=== PATIENT | female | born 1935 | race Hispanic/Latino ===

== ENCOUNTER 2017-03-08 11:34 | Day surgery (SDC) | payer MEDICARE, MEDICAID ==
[2017-03-08] MEDS ORDERED: Epoetin 40,000 UNITS/ML VIAL SC SCH (12:00)
[2017-03-08 13:41] VITALS: BP 200/80; TEMP 97.8
== END 2017-03-08 13:41 | disposition home or self-care (01) ==
LOC: ONC/OP 11:34
PROVIDERS: ATTEND Internal Medicine Hematology & Oncology
DX: I13.0 Hypertensive heart and chronic kidney disease with heart failure and stage 1 through stage 4 chronic kidney disease, or unspecified chronic kidney disease (principal); I50.23 Acute on chronic systolic (congestive) heart failure; N18.2 Chronic kidney disease, stage 2 (mild); D63.1 Anemia in chronic kidney disease; D50.9 Iron deficiency anemia, unspecified; E11.22 Type 2 diabetes mellitus with diabetic chronic kidney disease; I25.10 Atherosclerotic heart disease of native coronary artery without angina pectoris; E78.5 Hyperlipidemia, unspecified; Z79.82 Long term (current) use of aspirin; Z79.899 Other long term (current) drug therapy
CPT/HCPCS: 96372; J0885

== ENCOUNTER 2017-05-24 11:41 | Day surgery (SDC) | payer MEDICARE, MEDICAID ==
[2017-05-24] MEDS ORDERED: Epoetin 40,000 UNITS/ML VIAL SC SCH (12:00)
== END 2017-05-24 13:10 | disposition home or self-care (01) ==
LOC: ONC/OP 11:41
PROVIDERS: ATTEND Internal Medicine Hematology & Oncology
DX: I12.9 Hypertensive chronic kidney disease with stage 1 through stage 4 chronic kidney disease, or unspecified chronic kidney disease (principal); N18.2 Chronic kidney disease, stage 2 (mild); D63.1 Anemia in chronic kidney disease; E78.5 Hyperlipidemia, unspecified
CPT/HCPCS: 96372; J0885

== ENCOUNTER 2017-07-29 12:04 | Day surgery (SDC) | payer MEDICARE, MEDICAID ==
[2017-07-29] MEDS ORDERED: Epoetin 40,000 UNITS/ML VIAL ONE (12:13)
[2017-07-29 12:22] VITALS: BP 182/83; TEMP 98
== END 2017-07-29 12:27 | disposition home or self-care (01) ==
LOC: ONC/OP 12:04
PROVIDERS: ATTEND Internal Medicine Hematology & Oncology
DX: I13.0 Hypertensive heart and chronic kidney disease with heart failure and stage 1 through stage 4 chronic kidney disease, or unspecified chronic kidney disease (principal); E11.22 Type 2 diabetes mellitus with diabetic chronic kidney disease; N18.2 Chronic kidney disease, stage 2 (mild); I50.22 Chronic systolic (congestive) heart failure; D63.1 Anemia in chronic kidney disease; I48.0 Paroxysmal atrial fibrillation; I25.10 Atherosclerotic heart disease of native coronary artery without angina pectoris; E78.5 Hyperlipidemia, unspecified; Z95.0 Presence of cardiac pacemaker; Z98.890 Other specified postprocedural states
CPT/HCPCS: 96372; J0885

== ENCOUNTER 2017-09-06 11:34 | Day surgery (SDC) | payer MEDICARE, MEDICAID ==
[2017-09-06] MEDS ORDERED: Epoetin 40,000 UNITS/ML VIAL SC SCH (11:45)
[2017-09-06 11:48] VITALS: BP 160/85; TEMP 98.1
[2017-09-06] MEDS ORDERED: Prevnar 13-Val Conj/PF 0.5 ML SYRINGE IM ONE (14:00)
== END 2017-09-06 11:58 | disposition home or self-care (01) ==
LOC: ONC/OP 11:34
PROVIDERS: ATTEND Internal Medicine Hematology & Oncology
DX: N18.2 Chronic kidney disease, stage 2 (mild) (principal); D63.1 Anemia in chronic kidney disease; D50.9 Iron deficiency anemia, unspecified
CPT/HCPCS: 96372; J0885

== ENCOUNTER 2017-11-01 11:45 | Day surgery (SDC) | payer MEDICARE, MEDICAID ==
[2017-11-01] MEDS ORDERED: Epoetin 40,000 UNITS/ML VIAL ONE (11:53)
[2017-11-01] MEDS ORDERED: Epoetin 40,000 UNITS/ML VIAL SC SCH (12:00)
[2017-11-01 12:57] VITALS: BP 192/86; TEMP 98
== END 2017-11-01 12:57 | disposition home or self-care (01) ==
LOC: ONC/OP 11:45
PROVIDERS: ATTEND Internal Medicine Hematology & Oncology
DX: D50.9 Iron deficiency anemia, unspecified (principal); N18.2 Chronic kidney disease, stage 2 (mild); D63.1 Anemia in chronic kidney disease
CPT/HCPCS: 96372; J0885

== ENCOUNTER 2018-01-03 15:52 | Day surgery (SDC) | payer MEDICARE, MEDICAID ==
[2018-01-03 16:12] VITALS: BP 192/71; TEMP 98.1
[2018-01-03] MEDS ORDERED: Epoetin 40,000 UNITS/ML VIAL SC SCH (16:15)
== END 2018-01-03 16:13 | disposition home or self-care (01) ==
LOC: ONC/OP 15:52
PROVIDERS: ATTEND Internal Medicine Hematology & Oncology
DX: N18.2 Chronic kidney disease, stage 2 (mild) (principal); D63.1 Anemia in chronic kidney disease; Z79.01 Long term (current) use of anticoagulants; Z79.899 Other long term (current) drug therapy
CPT/HCPCS: 96372; J0885

== ENCOUNTER 2018-02-11 12:15 | Day surgery (SDC) | payer MEDICARE, MEDICAID ==
[2018-02-11] MEDS ORDERED: Epoetin 40,000 UNITS/ML VIAL ONE (12:29)
[2018-02-11] MEDS ORDERED: Epoetin 40,000 UNITS/ML VIAL SC SCH (12:45)
== END 2018-02-11 12:31 | disposition home or self-care (01) ==
LOC: ONC/OP 12:15
PROVIDERS: ATTEND Internal Medicine Hematology & Oncology
DX: N18.2 Chronic kidney disease, stage 2 (mild) (principal); D63.1 Anemia in chronic kidney disease; D50.9 Iron deficiency anemia, unspecified
CPT/HCPCS: 82728; 83540; 83550; 96372; J0885

== ENCOUNTER 2018-03-21 12:12 | Day surgery (SDC) | payer MEDICARE, MEDICAID ==
[2018-03-21] MEDS ORDERED: Epoetin 40,000 UNITS/ML VIAL ONE (12:13)
== END 2018-03-21 19:40 | disposition home or self-care (01) ==
LOC: ONC/OP 12:12
PROVIDERS: ATTEND Internal Medicine Hematology & Oncology
DX: N18.2 Chronic kidney disease, stage 2 (mild) (principal); D63.1 Anemia in chronic kidney disease; D50.9 Iron deficiency anemia, unspecified; Z79.01 Long term (current) use of anticoagulants; Z79.82 Long term (current) use of aspirin; Z79.899 Other long term (current) drug therapy
CPT/HCPCS: 96372; J0885

== ENCOUNTER 2018-05-23 11:59 | Day surgery (SDC) | payer MEDICARE, MEDICAID ==
[2018-05-23] MEDS ORDERED: Epoetin 40,000 UNITS/ML VIAL ONE (12:09)
[2018-05-23] MEDS ORDERED: Epoetin 40,000 UNITS/ML VIAL SC SCH (12:15)
[2018-05-23 12:22] VITALS: BP 172/73; TEMP 98.3
== END 2018-05-23 12:23 | disposition home or self-care (01) ==
LOC: ONC/OP 11:59
PROVIDERS: ATTEND Internal Medicine Hematology & Oncology
DX: N18.2 Chronic kidney disease, stage 2 (mild) (principal); D63.1 Anemia in chronic kidney disease; D50.9 Iron deficiency anemia, unspecified
CPT/HCPCS: 82728; 83540; 83550; 96372; J0885

== ENCOUNTER 2018-07-07 14:02 | Day surgery (SDC) | payer MEDICARE, MEDICAID ==
[2018-07-07] MEDS ORDERED: Epoetin 40,000 UNITS/ML VIAL ONE (14:05)
[2018-07-07] MEDS ORDERED: EPOETIN ALFA-EPBX (NON-ESRD) 40,000 UNIT/ML VIAL SC SCH (14:30)
[2018-07-07 14:48] VITALS: BP 176/74; TEMP 98
== END 2018-07-07 14:48 | disposition home or self-care (01) ==
LOC: ONC/OP 14:02
PROVIDERS: ATTEND Internal Medicine Hematology & Oncology
DX: N18.2 Chronic kidney disease, stage 2 (mild) (principal); D63.1 Anemia in chronic kidney disease; D50.9 Iron deficiency anemia, unspecified
CPT/HCPCS: 96372; J0885; Q5106

== ENCOUNTER 2018-08-29 12:02 | Day surgery (SDC) | payer MEDICARE, MEDICAID ==
[2018-08-29] MEDS ORDERED: EPOETIN ALFA-EPBX (NON-ESRD) 40,000 UNIT/ML VIAL SC SCH (12:15)
[2018-08-29 12:22] VITALS: BP 136/63; TEMP 97.7
[2018-08-29] MEDS ORDERED: EPOETIN ALFA-EPBX (ESRD) 40,000 UNIT/ML VIAL SC SCH (12:30)
== END 2018-08-29 12:30 | disposition home or self-care (01) ==
LOC: ONC/OP 12:02
PROVIDERS: ATTEND Internal Medicine Hematology & Oncology
DX: N18.2 Chronic kidney disease, stage 2 (mild) (principal); D63.1 Anemia in chronic kidney disease; D50.9 Iron deficiency anemia, unspecified
CPT/HCPCS: 96372; Q5106

== ENCOUNTER 2018-10-10 12:57 | Day surgery (SDC) | payer MEDICARE, MEDICAID ==
[2018-10-10 13:07] VITALS: BP 174/74; TEMP 97.6
[2018-10-10] MEDS ORDERED: EPOETIN ALFA-EPBX (ESRD) 40,000 UNIT/ML VIAL SC SCH (13:15)
[2018-10-10] MEDS ORDERED: Prevnar 13-Val Conj/PF 0.5 ML SYRINGE IM ONE (13:30)
== END 2018-10-10 15:36 | disposition home or self-care (01) ==
LOC: ONC/OP 12:57
PROVIDERS: ATTEND Internal Medicine Hematology & Oncology
DX: N18.2 Chronic kidney disease, stage 2 (mild) (principal); D63.1 Anemia in chronic kidney disease; D50.9 Iron deficiency anemia, unspecified
CPT/HCPCS: 96372; Q5105

== ENCOUNTER 2018-11-11 09:53 | Day surgery (SDC) | payer MEDICARE, MEDICAID ==
[2018-11-11] MEDS ORDERED: EPOETIN ALFA-EPBX (ESRD) 40,000 UNIT/ML VIAL ONE (09:56)
[2018-11-11 10:01] VITALS: BP 148/67; TEMP 97.6
== END 2018-11-11 12:37 | disposition home or self-care (01) ==
LOC: ONC/OP 09:53
PROVIDERS: ATTEND Internal Medicine Hematology & Oncology
DX: N18.2 Chronic kidney disease, stage 2 (mild) (principal); D63.1 Anemia in chronic kidney disease; D50.9 Iron deficiency anemia, unspecified
CPT/HCPCS: 96372; Q5105

== ENCOUNTER 2018-12-12 11:35 | Day surgery (SDC) | payer MEDICARE, MEDICAID ==
[2018-12-12] MEDS ORDERED: EPOETIN ALFA-EPBX (NON-ESRD) 40,000 UNIT/ML VIAL ONE (11:42)
[2018-12-12 11:59] VITALS: BP 143/65; TEMP 97.7
[2018-12-12] MEDS ORDERED: EPOETIN ALFA-EPBX (ESRD) 40,000 UNIT/ML VIAL SC SCH (12:00)
== END 2018-12-12 12:00 | disposition home or self-care (01) ==
LOC: ONC/OP 11:35
PROVIDERS: ATTEND Internal Medicine Hematology & Oncology
DX: N18.2 Chronic kidney disease, stage 2 (mild) (principal); D63.1 Anemia in chronic kidney disease; D50.9 Iron deficiency anemia, unspecified
CPT/HCPCS: 96372; Q5106

== ENCOUNTER 2019-01-23 11:37 | Day surgery (SDC) | payer MEDICARE, MEDICAID ==
[2019-01-23] MEDS ORDERED: EPOETIN ALFA-EPBX (ESRD) 40,000 UNIT/ML VIAL ONE (11:57)
[2019-01-23 12:12] VITALS: BP 149/67; TEMP 98
[2019-01-23] MEDS ORDERED: EPOETIN ALFA-EPBX (ESRD) 40,000 UNIT/ML VIAL SC SCH (12:15)
== END 2019-01-23 12:13 | disposition home or self-care (01) ==
LOC: ONC/OP 11:37
PROVIDERS: ATTEND Internal Medicine Hematology & Oncology
DX: N18.2 Chronic kidney disease, stage 2 (mild) (principal); D63.1 Anemia in chronic kidney disease; D50.9 Iron deficiency anemia, unspecified
CPT/HCPCS: 82728; 83540; 83550; 96372; Q5105

== ENCOUNTER 2019-02-27 11:33 | Day surgery (SDC) | payer MEDICARE, MEDICAID ==
[2019-02-27] MEDS ORDERED: EPOETIN ALFA-EPBX (ESRD) 40,000 UNIT/ML VIAL ONE (11:39)
[2019-02-27] MEDS ORDERED: EPOETIN ALFA-EPBX (ESRD) 40,000 UNIT/ML VIAL SC SCH (12:00)
[2019-02-27 13:05] VITALS: BP 154/67; TEMP 98.3
== END 2019-02-27 13:17 | disposition home or self-care (01) ==
LOC: ONC/OP 11:33
PROVIDERS: ATTEND Internal Medicine Hematology & Oncology
DX: N18.2 Chronic kidney disease, stage 2 (mild) (principal); D63.1 Anemia in chronic kidney disease; D50.9 Iron deficiency anemia, unspecified
CPT/HCPCS: 96372; Q5105

== ENCOUNTER 2019-04-13 12:07 | Day surgery (SDC) | payer MEDICARE, MEDICAID ==
[2019-04-13] MEDS ORDERED: EPOETIN ALFA-EPBX (ESRD) 40,000 UNIT/ML VIAL ONE (12:15)
[2019-04-13 12:27] VITALS: BP 165/71; TEMP 97.5
[2019-04-13] MEDS ORDERED: EPOETIN ALFA-EPBX (ESRD) 40,000 UNIT/ML VIAL SC SCH (12:30)
== END 2019-04-13 12:32 | disposition home or self-care (01) ==
LOC: ONC/OP 12:07
PROVIDERS: ATTEND Internal Medicine Hematology & Oncology
DX: N18.2 Chronic kidney disease, stage 2 (mild) (principal); D63.1 Anemia in chronic kidney disease; D50.9 Iron deficiency anemia, unspecified
CPT/HCPCS: 96372; Q5105

== ENCOUNTER → 2019-05-22 | Day surgery (SDC) | payer MEDICARE, MEDICAID ==
[~2019-05-22] MED LIST: EPOETIN ALFA-EPBX (ESRD) 40,000 UNIT/ML VIAL ONE
[2019-05-22 13:59] VITALS: BP 181/78
== END ==
LOC: ONC/OP 12:21
PROVIDERS: ATTEND Internal Medicine Hematology & Oncology
DX: N18.2 Chronic kidney disease, stage 2 (mild) (principal); D63.1 Anemia in chronic kidney disease; D50.9 Iron deficiency anemia, unspecified
CPT/HCPCS: 96372; Q5105

== ENCOUNTER 2019-06-19 11:44 | Day surgery (SDC) | payer MEDICARE, MEDICAID ==
[2019-06-19] MEDS ORDERED: EPOETIN ALFA-EPBX (ESRD) 40,000 UNIT/ML VIAL ONE (11:47)
[2019-06-19 11:57] VITALS: BP 196/75; TEMP 97.9
== END 2019-06-19 11:59 | disposition home or self-care (01) ==
LOC: ONC/OP 11:44
PROVIDERS: ATTEND Internal Medicine Hematology & Oncology
DX: N18.2 Chronic kidney disease, stage 2 (mild) (principal); D63.1 Anemia in chronic kidney disease; D50.9 Iron deficiency anemia, unspecified
CPT/HCPCS: 36415; 82728; 83540; 83550; 96372; Q5105

== ENCOUNTER 2019-07-31 11:31 | Day surgery (SDC) | payer MEDICARE, MEDICAID ==
[2019-07-31] MEDS ORDERED: EPOETIN ALFA-EPBX (ESRD) 40,000 UNIT/ML VIAL ONE (11:36)
[2019-07-31 11:56] VITALS: BP 173/72; TEMP 97.9
== END 2019-07-31 12:28 | disposition home or self-care (01) ==
LOC: ONC/OP 11:31
PROVIDERS: ATTEND Internal Medicine Hematology & Oncology
DX: N18.2 Chronic kidney disease, stage 2 (mild) (principal); D63.1 Anemia in chronic kidney disease; D50.9 Iron deficiency anemia, unspecified
CPT/HCPCS: 96372; Q5105

== ENCOUNTER 2019-08-28 11:23 | Day surgery (SDC) | payer MEDICARE, MEDICAID ==
[2019-08-28 11:32] VITALS: BP 177/74; TEMP 97.9
[2019-08-28] MEDS ORDERED: EPOETIN ALFA-EPBX (ESRD) 40,000 UNIT/ML VIAL ONE (11:35)
== END 2019-08-28 11:38 | disposition home or self-care (01) ==
LOC: ONC/OP 11:23
PROVIDERS: ATTEND Internal Medicine Hematology & Oncology
DX: N18.2 Chronic kidney disease, stage 2 (mild) (principal); D63.1 Anemia in chronic kidney disease; D50.9 Iron deficiency anemia, unspecified
CPT/HCPCS: 96372; Q5105

== ENCOUNTER 2019-10-02 11:34 | Day surgery (SDC) | payer MEDICARE, MEDICAID ==
[2019-10-02] MEDS ORDERED: EPOETIN ALFA-EPBX (ESRD) 40,000 UNIT/ML VIAL ONE (11:45)
[2019-10-02] MEDS ORDERED: EPOETIN ALFA-EPBX (ESRD) 40,000 UNIT/ML VIAL SC SCH (12:15)
== END 2019-10-02 11:57 | disposition home or self-care (01) ==
LOC: ONC/OP 11:34
PROVIDERS: ATTEND Internal Medicine Hematology & Oncology
DX: N18.2 Chronic kidney disease, stage 2 (mild) (principal); D63.1 Anemia in chronic kidney disease; D50.9 Iron deficiency anemia, unspecified
CPT/HCPCS: 96372; Q5105

== ENCOUNTER 2019-12-03 14:59 | Day surgery (SDC) | payer MEDICARE, MEDICAID ==
[2019-12-03] MEDS ORDERED: EPOETIN ALFA-EPBX (ESRD) 40,000 UNIT/ML VIAL ONE (15:06)
[2019-12-03 15:08] VITALS: BP 157/70; TEMP 97.8
[2019-12-03] MEDS ORDERED: EPOETIN ALFA-EPBX (ESRD) 40,000 UNIT/ML VIAL SC SCH (15:15)
== END 2019-12-03 15:22 | disposition home or self-care (01) ==
LOC: ONC/OP 14:59
PROVIDERS: ATTEND Internal Medicine Hematology & Oncology
DX: N18.2 Chronic kidney disease, stage 2 (mild) (principal); D63.1 Anemia in chronic kidney disease; D50.9 Iron deficiency anemia, unspecified
CPT/HCPCS: 80048; 82728; 83540; 83550; 96372; Q5105

== ENCOUNTER 2020-01-07 14:18 | Day surgery (SDC) | payer MEDICARE, MEDICAID ==
[2020-01-07] MEDS ORDERED: EPOETIN ALFA-EPBX (ESRD) 40,000 UNIT/ML VIAL ONE (14:23)
[2020-01-07 14:36] VITALS: BP 153/67; TEMP 97.9
== END 2020-01-07 14:46 | disposition home or self-care (01) ==
LOC: ONC/OP 14:18
PROVIDERS: ATTEND Internal Medicine Hematology & Oncology
DX: N18.2 Chronic kidney disease, stage 2 (mild) (principal); D63.1 Anemia in chronic kidney disease; D50.9 Iron deficiency anemia, unspecified
CPT/HCPCS: 96372; Q5105

== ENCOUNTER 2020-02-12 11:40 | Day surgery (SDC) | payer MEDICARE, MEDICAID ==
[2020-02-12] MEDS ORDERED: EPOETIN ALFA-EPBX (ESRD) 40,000 UNIT/ML VIAL ONE (11:49)
[2020-02-12 12:00] VITALS: BP 153/70; TEMP 97.9
== END 2020-02-12 12:03 | disposition home or self-care (01) ==
LOC: ONC/OP 11:40
PROVIDERS: ATTEND Nurse Practitioner Acute Care
DX: N18.2 Chronic kidney disease, stage 2 (mild) (principal); D63.1 Anemia in chronic kidney disease; D50.9 Iron deficiency anemia, unspecified
CPT/HCPCS: 96372; Q5105

== ENCOUNTER 2020-03-21 11:39 | Day surgery (SDC) | payer MEDICARE, MEDICAID ==
[2020-03-21] MEDS ORDERED: EPOETIN ALFA-EPBX (ESRD) 40,000 UNIT/ML VIAL ONE (12:07)
[2020-03-21 12:13] VITALS: BP 141/66; TEMP 97.9
[2020-03-21] MEDS ORDERED: EPOETIN ALFA-EPBX (ESRD) 40,000 UNIT/ML VIAL SC SCH (12:30)
== END 2020-03-21 12:14 | disposition home or self-care (01) ==
LOC: ONC/OP 11:39
PROVIDERS: ATTEND Internal Medicine Hematology & Oncology
DX: N18.2 Chronic kidney disease, stage 2 (mild) (principal); D63.1 Anemia in chronic kidney disease; D50.9 Iron deficiency anemia, unspecified
CPT/HCPCS: 96372; Q5105

== ENCOUNTER 2020-04-22 11:57 | Day surgery (SDC) | payer MEDICARE, MEDICAID ==
[2020-04-22 12:15] VITALS: BP 160/70; TEMP 97.7
[2020-04-22] MEDS ORDERED: EPOETIN ALFA-EPBX (ESRD) 40,000 UNIT/ML VIAL SC SCH (12:15)
== END 2020-04-22 12:30 | disposition home or self-care (01) ==
LOC: ONC/OP 11:57
PROVIDERS: ATTEND Internal Medicine Hematology & Oncology
DX: N18.2 Chronic kidney disease, stage 2 (mild) (principal); D63.1 Anemia in chronic kidney disease; D50.9 Iron deficiency anemia, unspecified
CPT/HCPCS: 96372; Q5105

== ENCOUNTER 2020-05-27 15:20 | Day surgery (SDC) | payer MEDICARE, MEDICAID ==
[2020-05-27] MEDS ORDERED: EPOETIN ALFA-EPBX (ESRD) 40,000 UNIT/ML VIAL ONE (15:28)
== END 2020-05-27 15:30 | disposition home or self-care (01) ==
LOC: ONC/OP 15:20
PROVIDERS: ATTEND Internal Medicine Hematology & Oncology
DX: N18.2 Chronic kidney disease, stage 2 (mild) (principal); D63.1 Anemia in chronic kidney disease; D50.9 Iron deficiency anemia, unspecified
CPT/HCPCS: 36415; 80048; 82728; 83540; 83550; 96372; Q5105

== ENCOUNTER 2020-07-01 11:51 | Day surgery (SDC) | payer MEDICARE, MEDICAID ==
[2020-07-01] MEDS ORDERED: EPOETIN ALFA-EPBX (ESRD) 40,000 UNIT/ML VIAL ONE (12:02)
[2020-07-01 12:07] VITALS: BP 166/72; TEMP 97.9
[2020-07-01] MEDS ORDERED: EPOETIN ALFA-EPBX (ESRD) 40,000 UNIT/ML VIAL SC SCH (13:00)
== END 2020-07-01 12:18 | disposition home or self-care (01) ==
LOC: ONC/OP 11:51
PROVIDERS: ATTEND Internal Medicine Hematology & Oncology
DX: N18.2 Chronic kidney disease, stage 2 (mild) (principal); D63.1 Anemia in chronic kidney disease; D50.9 Iron deficiency anemia, unspecified
CPT/HCPCS: 96372; Q5105

== ENCOUNTER 2020-07-29 11:59 | Day surgery (SDC) | payer MEDICARE, MEDICAID ==
[2020-07-29 12:08] VITALS: BP 167/74; TEMP 97.8
[2020-07-29] MEDS ORDERED: EPOETIN ALFA-EPBX (ESRD) 40,000 UNIT/ML VIAL SC SCH (12:30)
== END 2020-07-29 12:41 | disposition home or self-care (01) ==
LOC: ONC/OP 11:59
PROVIDERS: ATTEND Internal Medicine Hematology & Oncology
DX: N18.2 Chronic kidney disease, stage 2 (mild) (principal); D63.1 Anemia in chronic kidney disease; D50.9 Iron deficiency anemia, unspecified
CPT/HCPCS: 96372; Q5105

== ENCOUNTER 2020-08-26 11:18 | Day surgery (SDC) | payer MEDICARE, MEDICAID ==
[~2020-08-26 11:18] MED LIST changes: -EPOETIN ALFA-EPBX (ESRD) 40,000 UNIT/ML VIAL ONE; +EPOETIN ALFA-EPBX (ESRD) 40,000 UNIT/ML VIAL SC SCH
[2020-08-26 11:33] VITALS: BP 185/78; TEMP 98
== END 2020-08-26 11:35 | disposition home or self-care (01) ==
LOC: ONC/OP 11:18
PROVIDERS: ATTEND Internal Medicine Hematology & Oncology
DX: N18.2 Chronic kidney disease, stage 2 (mild) (principal); D63.1 Anemia in chronic kidney disease; D50.9 Iron deficiency anemia, unspecified
CPT/HCPCS: 96372; Q5105

== ENCOUNTER 2020-09-30 12:08 | Day surgery (SDC) | payer MEDICARE, MEDICAID ==
[2020-09-30] MEDS ORDERED: EPOETIN ALFA-EPBX (ESRD) 40,000 UNIT/ML VIAL ONE (12:12)
== END 2020-09-30 12:22 | disposition home or self-care (01) ==
LOC: ONC/OP 12:08
PROVIDERS: ATTEND Internal Medicine Hematology & Oncology
DX: N18.2 Chronic kidney disease, stage 2 (mild) (principal); D63.1 Anemia in chronic kidney disease; D50.9 Iron deficiency anemia, unspecified
CPT/HCPCS: 96372; Q5105